=== PATIENT | female | born 1980 ===

== ENCOUNTER 2025-04-10 06:00 | Day surgery (SDC) | payer OTHER ==
[2025-04-02 07:51] VITALS: BP 109/74
[2025-04-02 08:03] LABS: BASO % 0.9 % (0.1-1.2); EOS # 0.09 (0.04-0.54); EOS % 1.4 % (0.7-7.0); LYMPH # 1.63 (1.18-3.74); LYMPH % 24.5 % (19.3-53.1); MEAN PLATELET VOLUME 10.40 fl (9.4-12.4); MONO # 0.48 (0.24-0.82); MONO % 7.2 % (4.7-12.5); NEUT # 4.37 (1.56-6.13); NEUT % 65.7 % (34.0-71.1); RED CELL DISTRIBUTION WIDTH 13.2 % (11.6-14.4)
[2025-04-02 08:06] LABS: URINE APPEARANCE Cloudy; URINE BILIRRUBIN Negative (NEGATIVE); URINE BLOOD Negative; URINE COLOR Yellow; URINE GLUCOSE Negative (NEGATIVE); URINE KETONE Negative (NEGATIVE); URINE LEUKOCYTE Large; URINE NITRATE Negative; URINE PROTEIN Negative (NEGATIVE); URINE UROBILINOGEN 0.2 E.U./dl
[2025-04-02 08:07] LABS: URINE BACTERIA 2703.6 uL (0.0-1933); URINE EPITHELIAL CELLS 63.9 uL (0.0-38.8); URINE RBC 3.2 uL (0.0-20.8); URINE WBC 175.0 uL (0.0-23.2)
[2025-04-02 08:46] LABS: INR 1.0
[2025-04-02 08:53] LABS: ALT/SGPT 22.0 U/L (12-78); AST/SGOT 11.0 U/L (15-37); BILIRUBIN TOTAL 0.63 mg/dL (0.3-1.2); BUN CREA RATIO 22.0 (7.0-25.0); CREATININE SERUM 0.76 mg/dL (0.55-1.02); GFR 82.3; GLOBULINA 3.7 G/DL (2.4-3.5); GLUCOSE FASTING 94.0 mg/dL (65-100); OSMOLALITY SERUM 277.0 MOSM/KG (275-295)
[2025-04-02 09:11] LABS: URINE CAST 0.14 uL (0.0-1.40); URINE YEAST FEW /hpf
[~2025-04-10] VITALS: Ht 160 cm; Wt 83.9 kg
[2025-04-10] MEDS ORDERED: CEFAZOLIN SODIUM 1,000 MG VIAL ONE (07:20)
[2025-04-10] MEDS ORDERED: POVIDONE-IODINE 118 ML BOTT TOP ONE (08:05)
[2025-04-10] MEDS ORDERED: CHLORHEXIDINE GLUCONATE 120 ML BOTTLE TOP ONE (09:41)
[2025-04-10] MEDS ORDERED: DOXYCYCLINE HY100 M2 PO (09:49)
[2025-04-10] MEDS ORDERED: IBU600 MG PO (09:49)
== END 2025-04-10 14:45 | disposition home or self-care (01) ==
LOC: CIR.AMB 06:00
PROVIDERS: ATTEND Obstetrics & Gynecology
DX: N84.0 Polyp of corpus uteri (principal); D25.0 Submucous leiomyoma of uterus; N92.0 Excessive and frequent menstruation with regular cycle; N72 Inflammatory disease of cervix uteri